=== PATIENT | male | born 1965 ===

== ENCOUNTER 2018-06-22 14:30 | Emergency (ER) | payer BC ==
--- NOTE | 2018-06-22 15:08 | UC ---
Respiratory Complaint HPI - HPI Summary HPI Summary: 52 yo male presents with 2 days of fatigue, cough, sinus pain/pressure/ congestion, and b/l earache. He has not been taking anything OTC. Admits he has a hx of COPD and is taking multiple inhalers for this. He has a nebulizer at home, but has not been using this. He is unsure if he has had a fever, but has felt hot/cold at times. Also feels short of breath at times, especially with coughing. He is still smoking daily. Denies chest pain, abdominal pain, n/v, diarrhea. - History of Current Complaint Stated Complaint: COUGH,CHEST CONGESTION Time Seen by Provider: 06/22/18 15:08 Hx Obtained From: Patient Onset/Duration: Gradual Onset Severity Initially: Moderate Severity Currently: Moderate Pain Intensity: 7 Pain Scale Used: 0-10 Numeric Character: Cough: Nonproductive - Allergies/Home Medications Allergies/Adverse Reactions: Allergies Allergy/AdvReac Type Severity Reaction Status Date / Time No Known Allergies Allergy Verified 06/22/18 15:12 Home Medications: Home Medications Albuterol HFA INHALER* [Ventolin HFA Inhaler*] 2 puff INH Q4H PRN 06/22/18 [ History Confirmed 06/22/18] Fluticasone-Salmeterol 100-50* [Advair Diskus 100-50*] 1 puff INH BID 06/22/18 [ History Confirmed 06/22/18] PMH/Surg Hx/FS Hx/Imm Hx Respiratory History: COPD - Family History Known Family History: Positive: Hypertension, Respiratory Disease - Social History Occupation: Employed Full-time Lives: With Family Alcohol Use: Occasionally Substance Use Type: None Smoking Status (MU): Heavy Every Day Tobacco Smoker Type: Cigarettes Review of Systems All Other Systems Reviewed And Are Negative: Yes Constitutional: Positive: Fatigue, Other - Body aches Skin: Positive: Negative Eyes: Positive: Negative ENT: Positive: Sore Throat, Ear Ache, Nasal Discharge, Sinus Congestion, Sinus Pain/Tenderness Respiratory: Positive: Shortness Of Breath, Cough Cardiovascular: Positive: Negative Gastrointestinal: Positive: Negative Musculoskeletal: Positive: Negative Neurological: Positive: Negative Psychological: Positive: Negative Physical Exam - Summary Physical Exam Summary: GENERAL: NAD. WDWN. No pain distress. SKIN: No rashes, sores, lesions, or open wounds. HEENT: Head: AT/NC Eyes: EOM intact. Conjunctiva clear without inflammation or discharge. Ears: Hearing grossly normal. TMs intact, no bulging, erythema, or edema. Nose: Nasal mucosa pink and moist. NTTP maxillary and frontal sinus. Throat: Posterior oropharynx without exudates, erythema, or tonsillar enlargement. Uvula midline. NECK: Supple. Nontender. No lymphadenopathy. CHEST: Moderate wheezing throughout. No accessory muscle use. Breathing comfortably and in no distress. CV: RRR. Without m/r/g. Pulses intact. Cap refill <2seconds NEURO: Alert. PSYCH: Age appropriate behavior. Triage Information Reviewed: Yes Vital Signs: Laboratory Tests 06/22/18 15:33 Influenza A (Rapid) Positive A Vital Signs: Temp Pulse Resp BP Pulse Ox 100.2 F 116 18 129/87 98 06/22/18 15:07 06/22/18 15:07 06/22/18 15:07 06/22/18 15:07 06/22/18 15:07 Vital Signs Reviewed: Yes Respiratory Course/Dx - Course Course Of Treatment: CXR: IMPRESSION: #. Stigmata of obstructive lung disease. #. No compelling evidence for pneumonia. POC flu positive. Duoneb: Pt feels slightly better and easier to take deep breath. Lung sounds significantly improved, but still scattered wheezing. Rx for prednisone, tessalon, and tamiflu. - Differential Dx/Diagnosis Provider Diagnosis: Influenza, COPD exacerbation Discharge - Sign-Out/Discharge Documenting (check all that apply): Patient Departure All imaging exams completed and their final reports reviewed: Yes - Discharge Plan Condition: Stable Disposition: HOME Prescriptions: Benzonatate CAP* [Tessalon 100 MG CAP*] 100 mg PO TID PRN #21 cap PRN Reason: Cough Oseltamivir CAP* [Tamiflu CAP*] 75 mg PO BID #10 cap predniSONE TAB* [Deltasone 20 MG TAB*] 20 mg PO DAILY #15 tab Patient Education Materials: Influenza (ED), COPD (Chronic Obstructive Pulmonary Disease) (DC) Forms: *Work Release Referrals: No Primary Care Phys,NOPCP [Primary Care Provider] - Additional Instructions: If you develop a fever, shortness of breath, chest pain, new or worsening symptoms - please call your PCP or go to the ED. Your blood pressure was high at todays visit. Please see your primary provider within 4 weeks for recheck and re-evaluation. 1) Rest and drink plenty of fluids 2) May take tylenol for your fever and general discomfort - Billing Disposition and Condition Condition: STABLE Disposition: Home
[2018-06-22 15:11] VITALS: BP 129/87
[2018-06-22] MEDS ORDERED: Albuterol/Ipratropium NEB.SOL* Albuterol 2.5 MG/Ipratropium 0.5 MG 3 ML INH ONE (15:23)
[2018-06-22] MEDS ORDERED: Benzonatate CAP* 100 MG PO ONE (15:30)
[2018-06-22 15:38] LABS: Influenza A Molecular POSITIVE (Negative)
== END 2018-06-22 16:17 | disposition home or self-care (01) ==
LOC: UCEAST 14:30
DX: J11.1 Influenza due to unidentified influenza virus with other respiratory manifestations (principal); J44.1 Chronic obstructive pulmonary disease with (acute) exacerbation; F17.210 Nicotine dependence, cigarettes, uncomplicated; Z79.51 Long term (current) use of inhaled steroids
CPT/HCPCS: 71046; 99202; A9270-GY; G0463

== ENCOUNTER → 2018-07-23 15:36 | Emergency (ER) | payer BC ==
[~2018-07-23 15:36] MED LIST: Aspirin 81 mg CHEW TAB* 81 MG TAB.CHEW PO ONE; Iodixanol 320 (CONTRAST) 100 ML SDV IV ONE; NS 0.9% 1000 ML** 1,000 ML IV ONE
--- NOTE | 2018-07-23 15:55 | ED ---
HPI Chest Pain - HPI Summary HPI Summary: A 52 y/o M presents to ED with c/o sudden onset CP described as tightness onset this afternoon, which has spontaneously resolved. Today, he was seated using his computer and when he got up to have a cigarette, he felt a sudden tightness in his chest. Associated sx: dizziness, head pressure, general weakness. Alleviating factors: sitting, lying down. Denies cardiac PMHx, has not ever had a stress test. In the past week, pt saw his PCP twice and dx: DM, HTN. He took Metformin 1000mg for the first time this AM. Pt lives in [place]. - History of Current Complaint Chief Complaint: EDChestPainROMI Time Seen by Provider: 07/23/18 15:52 Hx Obtained From: Patient Onset/Duration: Atraumatic, Resolved Timing: Intermittent Initial Severity: Mild Current Severity: None Pain Intensity: 2 Pain Scale Used: 0-10 Numeric Character: Tightness Alleviating Factor(s): Position - sitting, laying done Associated Signs and Symptoms: Positive: Weakness - generalized, Dizziness, Other: - pos: head pressure - Allergy/Home Medications Allergies/Adverse Reactions: Allergies Allergy/AdvReac Type Severity Reaction Status Date / Time No Known Allergies Allergy Verified 06/22/18 15:12 Home Medications: Home Medications metFORMIN* [Glucophage 1000 MG TAB *] 1,000 mg PO BID 07/23/18 [History Confirmed 07/23/18] PMH/Surg Hx/FS Hx/Imm Hx Previously Healthy: No Endocrine/Hematology History: Reports: Hx Diabetes Cardiovascular History: Reports: Hx Hypertension Respiratory History: Reports: Hx Chronic Obstructive Pulmonary Disease (COPD) - Surgical History Surgery Procedure, Year, and Place: hip surgery. hand surgery Infectious Disease History: No Infectious Disease History: Denies: Traveled Outside the [place] in Last 30 Days - Family History Known Family History: Positive: Hypertension, Diabetes - grandmother, Respiratory Disease - Social History Occupation: Employed Full-time Lives: With Family Alcohol Use: Occasionally Hx Substance Use: No Substance Use Type: Reports: None Hx Tobacco Use: Yes Smoking Status (MU): Heavy Every Day Tobacco Smoker Type: Cigarettes Review of Systems Positive: Other - pos: head pressure Positive: Chest Pain Neurological: Other - pos: dizziness Positive: Weakness - generalized All Other Systems Reviewed And Are Negative: Yes Physical Exam - Summary Physical Exam Summary: VITAL SIGNS: Reviewed. GENERAL: Patient is a well-developed and nourished MALE who is lying comfortable in the stretcher. Patient is not in any acute respiratory distress. HEAD AND FACE: No signs of trauma. No ecchymosis, hematomas or skull depressions. No sinus tenderness. EYES: PERRLA, EOMI x 2, No injected conjunctiva, no nystagmus. EARS: Hearing grossly intact. Ear canals and tympanic membranes are within normal limits. MOUTH: Oropharynx within normal limits. NECK: Supple, trachea is midline, no adenopathy, no JVD, no carotid bruit, no c- spine tenderness, neck with full ROM. CHEST: Symmetric, no tenderness at palpation LUNGS: Clear to auscultation bilaterally. No wheezing or crackles. CVS: Regular rate and rhythm, S1 and S2 present, no murmurs or gallops appreciated. ABDOMEN: Soft, non-tender. No signs of distention. No rebound, no guarding, and no masses palpated. Bowel sounds are normal. EXTREMITIES: FROM in all major joints, no edema, no cyanosis or clubbing. NEURO: Alert and oriented x 3. No acute neurological deficits. Speech is normal and follows commands. SKIN: Dry and warm Triage Information Reviewed: Yes Vital Signs On Initial Exam: Initial Vitals Temp Pulse Resp BP Pulse Ox 97.8 F 114 20 131/82 93 07/23/18 15:36 07/23/18 15:36 07/23/18 15:36 07/23/18 15:36 07/23/18 15:36 Vital Signs Reviewed: Yes Diagnostics - Vital Signs Vital Signs Temp Pulse Resp BP Pulse Ox 07/23/18 15:36 97.8 F 114 20 131/82 93 - Laboratory Result Diagrams: 07/23/18 16:08 07/23/18 16:08 Lab Statement: Any lab studies that have been ordered have been reviewed, and results considered in the medical decision making process. - Radiology CXR Radiology Interpretation Completed By: Radiologist Summary of Radiographic Findings: IMPRESSION: No evidence for acute disease. ED provider has reviewed this report. - EKG 1544 Cardiac Rate: Tachycardia - 112 bpm EKG Rhythm: Sinus Tachycardia Summary of EKG Findings: No ST elevation. Q-wave in III. Re-Evaluation - Re-Evaluation 1 Re-Evaluation Time: 17:38 Change: Unchanged Comment: Discussing results and admission with patient. Pt is currently admitted , but he wants to talk to his because he may sign out AMA to see his doctors in [place]. 2 Re-Evaluation Time: 17:51 Change: Unchanged Comment: Pt is agreeable to admission. 3 Re-Evaluation Time: 18:16 Change: Unchanged Comment: Pt has decided to leave AMA. Chest Pain Course/Dx - Course Assessment/Plan: This patient is a 52-year-old male who presents to the emergency department with a chief complaint of having chest pain on exertion. The patient was recently diagnosed with diabetes and hypertension. EKG shows a normal sinus rhythm without ST elevation. Blood test results are without any significant abnormality except for chloride 97, BUN is 31, creatinine 1.69, glucose 289. Troponin 0.01. Chest x-ray impression: No evidence for acute disease. In the ED course the patient was given IV fluids, aspirin, and I held the nitroglycerin since CP had resolved. I also held the Lopressor since the blood pressure was only 102/70. Because the patient is tachycardic, I order a d -dimer and I would order chest CTA and laboratory to rule out tumor embolus. I discuss my physical exam, findings and test results with Dr. Sarmiento from the hospitalist services and he agrees to admit patient to his services. Patient is hemodynamically stable alert and oriented x 3. After the patient was admitted to the hospital, the patient refused to stay in the hospital, he wants to go back to [place] to his own doctors and admitted there to be treated. I spent approximately 30-40 minutes discussing his symptoms, the test results and the risk of having an acute coronary syndrome or a PE however the patient refuses to stay. The patient reports that he was signing AGAINST MEDICAL ADVICE. I extensively discussed with the patient the benefits and risk of leaving AMA. I also discussed the alternatives to leaving AMA, however, the patient still insisted on leaving the hospital AMA. The patient is clinically sober, free from distracting injury, appears to have intact insight and judgment and reason, and in my opinion has the capacity to make decisions. Patient has full capacity and is cognitively intact. The patient presents with chest pain on excertion and SOB, dizziness, I have explained that I am concerned with acute coronary syndrome and PE which may represent . The patient verbalizes the understanding of my concerns. I have also explained the results of the labs and even though they are abnormal. The primary nurse and the charge nurse also strongly recommended that the patient should not leave AMA. Patient understands the risk of leaving AMA, which includes but is not restricted to . Patient signed the AMA form. Patient was also advised to return to ED if he changes his mind or if the symptoms worsen or other symptoms appear. Patient understands and agrees. Again, I discussed all the findings and test results with the patient. Patient was instructed to return to the emergency room immediately if any of the symptoms return or worsens. Plan of care was discussed with the patient and understands and agrees. All questions were answered at patient satisfaction. There were no further complaints or concerns. Patient signed AMA and he was discharged AMA. - Chest Pain Differential Diagnosis/HQI/PQRI: Acute ME, ACS, Angina, Aortic Aneurysm, CHF, Chest Wall, GI Disease, Lower Respiratory Infection, Pulmonary Edema, Pulmonary Embolism - Diagnoses Provider Diagnoses: Stable angina - Provider Notifications Discussed Care Of Patient With: Jocy Sarmiento - hospitalist Time Discussed With Above Provider: 17:35 Instructed by Provider To: Admit As Inpatient Discharge - Sign-Out/Discharge Documenting (check all that apply): Patient Departure - AMA Patient Received Moderate/Deep Sedation with Procedure: No - Discharge Plan Condition: Stable Disposition: AGAINST MEDICAL ADVICE Referrals: No Primary Care Phys,NOPCP [Primary Care Provider] - - Billing Disposition and Condition Condition: STABLE Disposition: Against Medical Advice - Attestation Statements Document Initiated by Scribe: Yes Documenting Scribe: Heather Galindo Provider For Whom Prudencio is Documenting (Include Credential): Dr. Matthew Andres MD Scribe Attestation: Heather Canseco scribed for Dr. Matthew Andres MD on 07/24/18 at 0723. Scribe Documentation Reviewed: Yes Provider Attestation: The documentation as recorded by the Heather perry accurately reflects the service I personally performed and the decisions made by , Dr. Matthew Andres MD Status of Scribe Document: Viewed
[2018-07-23 16:20] LABS: ABS Eosinophils 0.2 10^3/ul (0-0.6); ABS Lymphocytes 3.2 10^3/ul (1.0-4.8); ABS Neutrophils 4.9 10^3/ul (1.5-7.7); Eosinophil % 2.2 %; Hematocrit 42 % (42-52); Hemoglobin 15.1 g/dL (14.0-18.0); Lymphocyte % 34.7 %; Mean Corpuscular HGB Conc 36 g/dL (31-36); Mean Corpuscular Hemoglobin 33 pg (27-31); Mean Corpuscular Volume 93 fL (80-94); Mean Platelet Volume 9.3 fL (7.4-10.4); Platelet Count 242 10^3/uL (150-450); Red Blood Count 4.53 10^6 /uL (4.18-5.48); Red Cell Distribution Width 13 % (10.5-15); White Blood Count 9.3 10^3/uL (3.5-10.8)
[2018-07-23 16:26] LABS: INR 0.97 (0.82-1.09)
[2018-07-23 16:33] LABS: Albumin 4.1 g/dL (3.2-5.2); Albumin/Globulin Ratio 1.5 (1-3); BUN/Creatinine Ratio 18.3 (8-20); Calcium 10.1 mg/dL (8.6-10.3); Globulin 2.7 g/dL (2-4); Potassium 4.1 mmol/L (3.5-5.0); Total Bilirubin 0.4 mg/dL (0.2-1.0); Total Protein 6.8 g/dL (6.4-8.9)
[2018-07-23 16:35] LABS: Troponin I 0.01 ng/mL (<0.04)
[2018-07-23 16:37] LABS: CKMB ng/mL 1.9 ng/mL (0.6-6.3)
[2018-07-23 16:56] LABS: TSH (Thyroid Stimulating Horm) 3.08 mcIU/mL (0.34-5.60)
[2018-07-23 18:34] VITALS: BP 111/75
--- NOTE | 2018-07-23 21:40 | CONS ---
CONSULTATION REPORT: DATE OF CONSULT: 07/23/18 - EMERGENCY DEPT PRIMARY CARE PROVIDER: Dr. Rich, [facility], [place], [place]. REQUESTING PHYSICIAN: Dr. Matthew Andres. ATTENDING PHYSICIAN: Jocy June MD, (dictated by CECILIA Alberts) REASON FOR CONSULT: The patient was to be admitted by hospitalist group for workup but has decided to leave against the medical advice. HISTORY OF PRESENT ILLNESS/HOSPITAL COURSE: I refer you to Dr. Andres' history and physical completed on 07/23/18 for complete details, but in short, Mr. Soliman is a 52-year-old male with a past medical history of COPD, who presented to [facility] today with complaints of dizziness, heaviness in the upper and lower extremities, shortness of breath, and tachypnea. He relays that approximately 2 weeks ago he was diagnosed with hypertension and 1 week ago he was diagnosed with diabetes. He states that he was prescribed "a bunch of medications" that he had just begun taking this morning around 10 a.m. He states that he took approximately 5 pills. He is unsure what he had taken and the only oral medication that is on his medication list is metformin. Regardless the patient states that he took approximately 5 medications this morning, worked on his computer for a while and then got up to go outside and have a cigarette. He states that he got dizzy and that his legs and arms felt heavy. He described an incident of shortness of breath/tachypnea. He states that he sat down for a few minutes. These symptoms resolved. He then stood up and the same thing happened. At that point, he became concerned and sought medical attention. While in the ER, the patient had blood work which included a CBC and chemistry profile among other things. CBC was relatively benign. Chemistry revealed an elevated glucose, elevated creatinine, elevated BUN. Troponin was negative x1. TSH was within normal levels. In the ER, the patient was given aspirin 325 and a normal saline bolus of 1 L. The patient was about to continue further workup for possible PE or ACS and has decided to leave against medical advice. PAST MEDICAL HISTORY: 1. COPD. 2. Hypertension. 3. Diabetes mellitus. PAST SURGICAL HISTORY: Hip, hand. HOME MEDICATIONS: 1. Metformin 1000 mg p.o. b.i.d. 2. Fluticasone/salmeterol 100/50 one puff inhalation b.i.d. 3. Albuterol HFA inhaler 2 puff inhalation q.4 hours p.r.n. ALLERGIES: NKDA. FAMILY HISTORY: The patient reports a family history of diabetes and hypertension. SOCIAL HISTORY: The patient is . He lives in [place]. He is currently awaiting arrival of his so that he can leave and go back to [facility] [place] [facility]. The patient is a heavy everyday smoker. REVIEW OF SYSTEMS: Review of systems was limited as the patient is agitated and eager to leave the hospital. He denies chest pain, shortness of breath. He states that he is somewhat diaphoretic right now as well as tachycardiac, but attributes it to agitation and being anxious to leave hospital. He denies abdominal pain, nausea, vomiting, diarrhea, constipation, or pain in the extremities. PHYSICAL EXAM: General: Mr. Soliman is a 52-year-old male. He is well developed, well nourished. He is a slightly obese, white, middle aged male. He is sitting up in bed. He appears agitated and is somewhat short. He is in no acute distress. Vital Signs: Temperature 96.8 temporal, heart rate 111, respiratory rate 14, oxygen saturation 93% on room air, blood pressure 111/75. HEENT: Visual hall . Pupils are equally round and reactive to light. Extraocular movements are intact. Sclerae are without icterus. Hearing is grossly intact. Neck: Full range of motion. Trachea midline. Cardiovascular: Tachycardic rate, regular rhythm. S1, S2 present. There are no murmurs, rubs , or gallops. There is no JVD. Respiratory: Symmetrical chest expansion without use of accessory muscles. Diffuse wheezing noted throughout bilateral lungs with right greater than left. No rhonchi or rubs. Abdomen: Obese, bowel sounds in all quadrants. Abdomen is soft and nontender to palpation. There is no hepatosplenomegaly. Extremities: Skin is warm and smooth bilaterally without clubbing, cyanosis, or edema. Radial and pedal pulses are palpable. Neuro: The patient is awake. He is alert and oriented x3. He is able to move all of his extremities. DIAGNOSTIC STUDIES/LAB DATA: As above. ASSESSMENT AND PLAN: Mr. Soliman is a 52-year-old male with a past medical history of diabetes, hypertension, and chronic obstructive pulmonary disease, who presented to the ER today with complaints of dizziness, shortness of breath. He was evaluated by the hospitalist group for admission and he decided to leave against medical advice. Dr. nAdres and the ER staff are aware of his decision to sign out against medical advice. We discussed the risks of leaving against medical advice which include further injury or possibly . The patient was to be worked up for possible acute coronary syndrome or pulmonary embolism with further studies and is still disinterested in being admitted. He would like to sign out and travel to [facility] to see his own doctors. The patient was encouraged to return to the ER or nearest hospital if symptoms worsen. At this time, he continues to request for discharge against medical advice. TIME SPENT: Approximately 30 minutes were spent on this consultation, greater than half that time was spent with the patient obtaining history, performing physical, and reviewing my plan of care. The case has been reviewed with my attending Dr. June, who is in agreement with the plan of care. CECILIA PIMENTEL [id number]/[facility] #: [id number] ANA MARIA
== END | disposition left against medical advice (07) ==
LOC: ED 15:36
DX: I20.9 Angina pectoris, unspecified (principal); I10 Essential (primary) hypertension; E11.9 Type 2 diabetes mellitus without complications; J44.9 Chronic obstructive pulmonary disease, unspecified; F17.210 Nicotine dependence, cigarettes, uncomplicated; Z79.84 Long term (current) use of oral hypoglycemic drugs
CPT/HCPCS: 36415; 71045; 80053; 82550; 82553; 83605; 83880; 84443; 84484; 85025; 85610; 93005; 99283; A9270-GY